=== PATIENT | female | born 1980 | race Hispanic/Latino ===

== ENCOUNTER 2023-08-06 09:53 | Emergency (ER) | payer BC, OTHER ==
[~2023-08-06] VITALS: Ht 157.5 cm; Wt 99.8 kg
[2023-08-06 10:42] LABS: BASOPHILS # (AUTO) 0.03 K/uL (0.00-0.20); BASOPHILS % (AUTO) 0.7 % (0.0-5.0); EOSINOPHILS % (AUTO) 2.3 % (0.0-8.0); HEMATOCRIT 38.8 % (36-48); IMMATURE GRANULOCYTE ABSOLUTE 0.01 K/uL (0-1); LYMPHOCYTES # (AUTO) 1.9 K/uL (1.0-4.8); LYMPHOCYTES % (AUTO) 43.8 % (21.0-51.0); MEAN CORPUSCULAR HEMOGLOBIN 32.1 pg (27.0-33.0); MEAN CORPUSCULAR HGB CONC 34.3 g/dL (32.0-36.0); MEAN CORPUSCULAR VOLUME 93.7 fL (79-99); MONOCYTES # (AUTO) 0.4 K/uL (0.1-1.0); MONOCYTES % (AUTO) 9.7 % (3.0-13.0); NEUTROPHILS # (AUTO) 1.9 K/uL (1.8-7.7); NEUTROPHILS % (AUTO) 43.3 % (40.0-77.0); PLATELET COUNT (AUTO) 121 K/uL (130-400); RED BLOOD CELL COUNT(AUTO) 4.14 MIL/uL (4.00-5.50); RED CELL DISTRIBUTION WIDTH 12.3 % (11.0-15.5); WHITE BLOOD COUNT (AUTO) 4.3 K/uL (4.8-10.8)
[2023-08-06 10:51] LABS: APPEARANCE,URINE CLEAR (CLEAR); BILIRUBIN,URINE NEGATIVE (NEGATIVE); COLOR,URINE YELLOW (YELLOW); GLUCOSE, URINE (UA) NEGATIVE (NEGATIVE); KETONES,URINE NEGATIVE (NEGATIVE); LEUKOCYTE ESTERASE ,URINE NEGATIVE Leu/uL (NEGATIVE); NITRATE,URINE NEGATIVE (NEGATIVE); OCCULT BLOOD,URINE NEGATIVE (NEGATIVE); PH,URINE 5.5 (5.0-8.0); PROTEIN,URINE 10 mg/dL (NEGATIVE); UROBILINOGEN,URINE 0.2 mg/dL (0.2-1.0)
[2023-08-06 10:52] LABS: CREATININE 0.7 mg/dL (0.5-1.5); POTASSIUM 3.9 mmol/L (3.5-5.1)
[2023-08-06 10:56] LABS: ALBUMIN 3.4 g/dL (3.5-5.0); BILIRUBIN,TOTAL 0.8 mg/dL (0.2-1.0)
[2023-08-06 10:56] LABS: ADD UA MICROSCOPIC YES
[2023-08-06 10:57] LABS: BACTERIA,URINE MOD /HPF (None Seen); MUCUS,URINE MANY LPF (None Seen); RBC,URINE 0-1 /HPF (0-1); SQUAMOUS EPITHELIAL CELL,UR RARE /HPF (0-2)
[2023-08-06] MEDS ORDERED: KETOROLAC 15MG/ML VIAL (15MG/ML) ONE (11:25)
[2023-08-06] MEDS ORDERED: DICYCLOMINE HCL 10 MG/5 ML ML PO ONE (11:30)
[2023-08-06] MEDS ORDERED: 0.9%NACL 1000ML 1,000 ML IV ONE (11:30)
[2023-08-06] MEDS ORDERED: ONDANSETRON 4MG INJ IVP ONE (11:30)
[2023-08-06] MEDS ORDERED: MAG/ALUM/SIMETH 30 ML UDCUP PO ONE (11:30)
[2023-08-06] MEDS ORDERED: LIDOCAINE HCL 2% VISCOUS 15 ML UDCUP PO ONE (11:30)
[2023-08-06] MEDS ORDERED: KETOROLAC 30MG VIAL (30MG/ML) IVP ONE (11:30)
[2023-08-06] MEDS ORDERED: FAMOTIDINE 20MG VIAL IV ONE (11:30)
[2023-08-06 12:55] VITALS: BP 108/56; PULSE 68; RESP 17; O2SAT 99
== END 2023-08-06 12:56 | disposition home or self-care (01) ==
LOC: EDH 09:53
DX: R07.89 Other chest pain (principal); J45.909 Unspecified asthma, uncomplicated; Z90.49 Acquired absence of other specified parts of digestive tract; Z98.890 Other specified postprocedural states; Z90.722 Acquired absence of ovaries, bilateral; Z88.5 Allergy status to narcotic agent; Z88.8 Allergy status to other drugs, medicaments and biological substances
CPT/HCPCS: 99284; 96374; 71045; 96375; 96361; 84484; 80053; 85025; 81001; 36415; 93005; J3490; J7030; J2405; J1885

== ENCOUNTER 2023-11-20 23:53 | Emergency (ER) | payer BC ==
[~2023-11-20] VITALS: Ht 157.5 cm; Wt 103.0 kg
[2023-11-21 00:25] LABS: APPEARANCE,URINE CLEAR (CLEAR); BILIRUBIN,URINE NEGATIVE (NEGATIVE); COLOR,URINE YELLOW (YELLOW); GLUCOSE, URINE (UA) 300 mg/dL (NEGATIVE); KETONES,URINE 5 mg/dL (NEGATIVE); LEUKOCYTE ESTERASE ,URINE NEGATIVE Leu/uL (NEGATIVE); NITRATE,URINE NEGATIVE (NEGATIVE); OCCULT BLOOD,URINE SMALL (NEGATIVE); PH,URINE 5.5 (5.0-8.0); PROTEIN,URINE 10 mg/dL (NEGATIVE)
[2023-11-21 00:29] LABS: ADD UA MICROSCOPIC YES
[2023-11-21 00:30] LABS: BASOPHILS # (AUTO) 0.01 K/uL (0.00-0.20); BASOPHILS % (AUTO) 0.2 % (0.0-5.0); HEMATOCRIT 39.7 % (36-48); IMMATURE GRANULOCYTE ABSOLUTE 0.02 K/uL (0-1); LYMPHOCYTES % (AUTO) 22.2 % (21.0-51.0); MEAN CORPUSCULAR HEMOGLOBIN 32.1 pg (27.0-33.0); MEAN CORPUSCULAR VOLUME 94.3 fL (79-99); MONOCYTES # (AUTO) 0.2 K/uL (0.1-1.0); NEUTROPHILS # (AUTO) 3.3 K/uL (1.8-7.7); NEUTROPHILS % (AUTO) 73.2 % (40.0-77.0); PLATELET COUNT (AUTO) 127 K/uL (130-400); RED BLOOD CELL COUNT(AUTO) 4.21 MIL/uL (4.00-5.50); RED CELL DISTRIBUTION WIDTH 12.3 % (11.0-15.5); WHITE BLOOD COUNT (AUTO) 4.5 K/uL (4.8-10.8)
[2023-11-21 00:30] LABS: MUCUS,URINE RARE LPF (None Seen); SQUAMOUS EPITHELIAL CELL,UR RARE /HPF (0-2); WBC,URINE 0-1 /HPF (0-1)
[2023-11-21 00:35] LABS: CREATININE 0.7 mg/dL (0.5-1.5); POTASSIUM 3.8 mmol/L (3.5-5.1)
[2023-11-21 00:39] LABS: ALBUMIN 3.1 g/dL (3.5-5.0); BILIRUBIN,TOTAL 0.5 mg/dL (0.2-1.0)
[2023-11-21 00:53] LABS: AMYLASE 36 U/L (25-115)
[2023-11-21] MEDS ORDERED: KETOROLAC 30MG VIAL (30MG/ML) IVP ONE (01:00)
[2023-11-21] MEDS ORDERED: ONDANSETRON 4MG INJ IVP ONE (01:00)
[2023-11-21] MEDS ORDERED: IOHEXOL 350 MG/ML 100ML INFUS..BTL IV ONE (01:46)
[2023-11-21] MEDS ORDERED: DICY20TA2 PO (03:38)
[2023-11-21] MEDS ORDERED: IBUP-1493 PO (03:38)
[2023-11-21 03:50] VITALS: BP 130/76; PULSE 83; RESP 18; O2SAT 96
== END 2023-11-21 03:54 | disposition home or self-care (01) ==
LOC: EDH 23:53
DX: R10.9 Unspecified abdominal pain (principal); J45.909 Unspecified asthma, uncomplicated; Z90.49 Acquired absence of other specified parts of digestive tract; Z98.890 Other specified postprocedural states; Z88.5 Allergy status to narcotic agent; Z88.8 Allergy status to other drugs, medicaments and biological substances
CPT/HCPCS: 99285; 82150; 84484; 80053; 83690 ×2; 85025; 85378; 81001; 81025; 36415; 71270; 96374; 96375; 74178; J2405; J1885; Q9967

== ENCOUNTER 2024-10-09 11:10 | Day surgery (SDC) | payer BC ==
[~2024-10-09] VITALS: Ht 157.5 cm; Wt 136.1 kg
[2024-10-09] VITALS (17 sets, daily range): BP systolic 104–137; BP diastolic 59–78; PULSE 68–97; RESP 15–18; TEMP 97.3–98.1
[~2024-10-09 11:10] MED LIST: DICY20TA2 PO; IBUP-1493 PO
[2024-10-09] MEDS ORDERED: RESM100T PO (11:57)
[2024-10-09] MEDS ORDERED: OMEP40CA21 PO (11:57)
[2024-10-09] MEDS ORDERED: CETI10CA5 PO (11:57)
[2024-10-09] MEDS: 0.9%NACL 1000ML 1,000 ML IV ONE (12:29)
[2024-10-09] MEDS ORDERED: LIDOCAINE HCL 400MG/20ML VIAL ONE (13:09)
[2024-10-09] MEDS ORDERED: proPOFol 10 MG/ML 20ML VIAL IV ONE ×2 (13:09→13:26)
[2024-10-09] MEDS ORDERED: SUCCINYLCHOLINE CHLORIDE 20 MG/ML 10 ML VIAL ONE (13:10)
[2024-10-09] MEDS ORDERED: FENTanyl CITRate PF 50 MCG/1 ML 2ML VIAL ONE (13:37)
[2024-10-09] MEDS ORDERED: proPOFol 1000 MG/100 ML 100 ML IV ONE (13:43)
[2024-10-09] MEDS ORDERED: ALBUTEROL INHALER 90MCG/INH IH ONE (13:47)
[2024-10-09] MEDS ORDERED: rocuRONium bROMide 10MG/1ML 5ML VL ONE (13:51)
[2024-10-09] MEDS ORDERED: SUGAMMADEX SODIUM 200 MG/2 ML VIAL IV ONE (13:53)
[2024-10-09] MEDS: ALBUTEROL 0.083% 2.5 MG/3 ML INH IH ONE (14:15)
[2024-10-09] MEDS: IpraTROPium/alBUTERol SULFATE 3 ML SOLUTION IH ONE ×2 (14:16→14:30)
--- NOTE | 2024-10-09 15:44 | HMCIMG ---
CHEST 1VW REASON: post procedure COMPARISON: None. FINDINGS: Lungs are clear. Left lower lobe subsegmental atelectasis. No pneumothorax or significant effusions. Heart size is normal. There is no pulmonary vascular congestion. Mediastinum and bony thorax appear unremarkable. IMPRESSION: Left lower lobe subsegmental atelectasis.
--- NOTE | 2024-10-09 15:57 | NUR ---
X-RAY: NOTIFIED YOJANA DORANTES CRNA OF RESULTS, OK TO DISCHARGE HOME.
== END 2024-10-09 16:20 | disposition home or self-care (01) ==
LOC: ENDO 11:10 → DAH 11:10 → ENDO 16:20
PROVIDERS: ATTEND Internal Medicine Gastroenterology
DX: R19.4 Change in bowel habit (principal); K29.50 Unspecified chronic gastritis without bleeding; D13.0 Benign neoplasm of esophagus; K62.89 Other specified diseases of anus and rectum; K92.1 Melena; K31.7 Polyp of stomach and duodenum; A04.72 Enterocolitis due to Clostridium difficile, not specified as recurrent; K74.02 Hepatic fibrosis, advanced fibrosis; K76.0 Fatty (change of) liver, not elsewhere classified; K22.89 Other specified disease of esophagus; K31.89 Other diseases of stomach and duodenum; F41.9 Anxiety disorder, unspecified; K21.9 Gastro-esophageal reflux disease without esophagitis; J45.909 Unspecified asthma, uncomplicated; E66.9 Obesity, unspecified; Z88.5 Allergy status to narcotic agent; Z90.49 Acquired absence of other specified parts of digestive tract; Z98.890 Other specified postprocedural states; Z68.41 Body mass index [BMI] 40.0-44.9, adult; Z98.891 History of uterine scar from previous surgery; Z82.49 Family history of ischemic heart disease and other diseases of the circulatory system; Z83.3 Family history of diabetes mellitus; Z79.899 Other long term (current) drug therapy
CPT/HCPCS: 43251; 81025; 71045; 43239; 45380; 94640; J3010; J3490 ×2; J0330; J7030 ×2; J2704 ×3; A4620; A4215 ×2; A4223; A4657 ×2; A7002; A4222; A4221; A4663; A4606